=== PATIENT | male | born 1955 | race Hispanic/Latino ===

== ENCOUNTER 2024-09-21 10:04 | Emergency (ER) | payer MEDICARE ==
[2024-09-21] VITALS (7 sets, daily range): BP systolic 123–147; BP diastolic 79–89
[~2024-09-21] VITALS: Ht 167.6 cm; Wt 73.0 kg
[2024-09-21] MEDS ORDERED: DEXAMETHASONE SOD. PHOSPHATE 10 MG/ML VIAL IV ONE (11:35)
[2024-09-21] MEDS ORDERED: KETOROLAC TROMETHAMINE 30 MG/ML SDV IV ONE (11:35)
[2024-09-21 12:11] LABS: BASO% 0.9 % (0-3); EOS% 4.9 % (0-8); HEMATOCRIT 40.9 % (39.0-50.0); HEMOGLOBIN 13.9 g/dl (14.0-18.0); IMMATURE GRANULOCYTES 0.1 % (0.0-5.0); LYMPH% 33.4 % (15-41); MEAN CELL VOLUME 96.5 fL CALC (80.0-100.0); MEAN CORPUSCULAR HGB 32.8 pG CALC (26.0-32.0); MONO% 8.9 % (2-13); NEUT# 3.47 thou/uL (1.82-7.42); NEUT% 51.8 % (42-76); RED BLOOD COUNT 4.24 mill/uL (4.70-6.10); RED CELL DISTRI WIDTH 13.2 % (11.5-15.5)
[2024-09-21 12:26] LABS: ALBUMIN 4.5 g/dL (3.2-5.0); BILIRUBIN, TOTAL 0.9 mg/dL (0.2-1.3); CREATININE 1.2 mg/dL (0.7-1.3); POTASSIUM 4.4 mmol/l (3.5-5.1); TOTAL PROTEIN 7.2 g/dL (6.3-8.2)
[2024-09-21] MEDS ORDERED: NAPROXEN500 MG PO (12:58)
[2024-09-21] MEDS ORDERED: PREDNISONE50 MG PO (12:58)
== END 2024-09-21 13:10 | disposition home or self-care (01) ==
LOC: ED 10:04
PROVIDERS: Family Medicine
DX: M25.512 Pain in left shoulder (principal); M25.511 Pain in right shoulder; M25.542 Pain in joints of left hand; M25.541 Pain in joints of right hand; M25.552 Pain in left hip; M25.551 Pain in right hip; M25.562 Pain in left knee; M25.561 Pain in right knee

== ENCOUNTER 2024-10-15 16:13 | Emergency (ER) | payer MEDICARE ==
[~2024-10-15] VITALS: Ht 167.6 cm; Wt 77.0 kg
[~2024-10-15 16:13] MED LIST: NAPROXEN500 MG PO; PREDNISONE50 MG PO
[2024-10-15] MEDS ORDERED: SODIUM CHLORIDE 0.9% 1,000 ML IV ONE (17:15)
[2024-10-15] MEDS ORDERED: Levofloxacin 500 mg Premix 100 ML IV ONE (17:20)
[2024-10-15 17:32] VITALS: BP 143/79
[2024-10-15 17:40] LABS: URINE BILIRUBIN - DIPSTICK Negative (NEGATIVE); URINE BLOOD DIPSTICK Trace-intact (NEGATIVE); URINE COLOR Yellow; URINE GLUCOSE - DIPSTICK Negative (NEGATIVE); URINE KETONE Negative (NEGATIVE); URINE LEUK ESTERASE Small (NEGATIVE); URINE NITRITE - DIPSTICK Negative (Negative); URINE PH 7.5 (4.5-8.0); URINE PROTEIN - DIPSTICK 30 mg/dL (NEG-TRACE); URINE UROBILINOGEN - DIPSTICK 0.2 E.U./dL (0.2)
[2024-10-15 17:41] LABS: BASO% 0.3 % (0-3); EOS% 1.8 % (0-8); HEMATOCRIT 41.7 % (39.0-50.0); HEMOGLOBIN 13.1 g/dl (14.0-18.0); IMMATURE GRANULOCYTES 0.1 % (0.0-5.0); MEAN CORPUSCULAR HGB CONC 31.4 g/dL CAL (32.0-36.0); MONO% 4.8 % (2-13); NEUT# 8.77 thou/uL (1.82-7.42); RED BLOOD COUNT 4.09 mill/uL (4.70-6.10); RED CELL DISTRI WIDTH 13.1 % (11.5-15.5)
[2024-10-15 17:45] VITALS: BP 135/77
[2024-10-15 17:46] LABS: URINE BACTERIA FEW hpf; URINE RBC 0-2 RBC/hpf (0-5); URINE WBC 50-100 WBC/hpf (0-5)
[2024-10-15] MEDS ORDERED: LEVOFLOXACIN500MG PO (17:52)
[2024-10-15] MEDS ORDERED: BACTRIM DS1 TAB PO (17:52)
[2024-10-15] MEDS ORDERED: PHENAZOPYRIDIN100 M1 PO (17:52)
[2024-10-15 18:28] LABS: ALBUMIN 3.7 g/dL (3.2-5.0); BILIRUBIN, TOTAL 0.6 mg/dL (0.2-1.3); CREATININE 1.2 mg/dL (0.7-1.3); POTASSIUM 4.3 mmol/l (3.5-5.1); TOTAL PROTEIN 6.1 g/dL (6.3-8.2)
[2024-10-15 18:43] VITALS: BP 128/71
[2024-10-15 18:45] VITALS: BP 122/65
[2024-10-16] MEDS ORDERED: TAMSULOSIN0.4 MG PO (07:16)
== END 2024-10-15 18:48 | disposition home or self-care (01) ==
LOC: ED 16:13
PROVIDERS: Nurse Practitioner Family
DX: N39.0 Urinary tract infection, site not specified (principal); D64.9 Anemia, unspecified
CPT/HCPCS: J1956

== ENCOUNTER 2024-10-16 03:23 | Inpatient (IN) | payer MEDICARE ==
[2024-10-16] VITALS (18 sets, daily range): BP systolic 86–154; BP diastolic 47–88
[~2024-10-16] VITALS: Ht 167.6 cm; Wt 76.0 kg
[~2024-10-16 03:23] MED LIST changes: +BACTRIM DS1 TAB PO; +LEVOFLOXACIN500MG PO; +PHENAZOPYRIDIN100 M1 PO
[2024-10-16] MEDS ORDERED: CEFEPIME HYDROCHLORIDE 2 GM in SODIUM CHLORIDE 0.9% 100 ML IV STA (03:38)
[2024-10-16] MEDS ORDERED: VANCOMYCIN HCL 1 GM in SODIUM CHLORIDE 0.9% 250 ML IV STA (03:38)
[2024-10-16] MEDS ORDERED: SODIUM CHLORIDE 0.9% 1,000 ML BAG IV ONE (03:40)
[2024-10-16] MEDS ORDERED: KETOROLAC TROMETHAMINE 30 MG/ML SDV IV ONE (03:45)
[2024-10-16] MEDS ORDERED: ONDANSETRON HCl 4 MG/2 ML SDV IV ONE (03:45)
[2024-10-16 04:14] LABS: BASO% 0.4 % (0-3); EOS% 1.1 % (0-8); HEMOGLOBIN 13.1 g/dl (14.0-18.0); IMMATURE GRANULOCYTES 0.1 % (0.0-5.0); LYMPH% 20.9 % (15-41); MEAN CELL VOLUME 98.3 fL CALC (80.0-100.0); MEAN CORPUSCULAR HGB 32.2 pG CALC (26.0-32.0); MEAN CORPUSCULAR HGB CONC 32.8 g/dL CAL (32.0-36.0); MONO% 1.2 % (2-13); NEUT# 7.12 thou/uL (1.82-7.42); NEUT% 76.3 % (42-76); RED BLOOD COUNT 4.07 mill/uL (4.70-6.10)
[2024-10-16 04:21] LABS: ALBUMIN 3.9 g/dL (3.2-5.0); CREATININE 1.4 mg/dL (0.7-1.3); POTASSIUM 4.3 mmol/l (3.5-5.1); TOTAL PROTEIN 6.5 g/dL (6.3-8.2)
[2024-10-16 04:26] LABS: BILIRUBIN, TOTAL 1.1 mg/dL (0.2-1.3)
[2024-10-16] MEDS ORDERED: SODIUM CHLORIDE 0.9% 1,000 ML IV ONE ×2 (04:35)
[2024-10-16] MEDS ORDERED: SODIUM CHLORIDE 0.9% 1,000 ML IV PRN (05:15)
[2024-10-16] MEDS ORDERED: MAGNESIUM HYDROXIDE 30 ML UDC PO PRN (05:15)
[2024-10-16] MEDS ORDERED: ACETAMINOPHEN 325 MG/TAB PO PRN (05:15)
[2024-10-16] MEDS ORDERED: ONDANSETRON HCl 4 MG/2 ML SDV IV PRN (05:20)
[2024-10-16 06:31] LABS: URINE BILIRUBIN - DIPSTICK Negative (NEGATIVE); URINE BLOOD DIPSTICK Trace-intact (NEGATIVE); URINE GLUCOSE - DIPSTICK Negative (NEGATIVE); URINE KETONE Negative (NEGATIVE); URINE LEUK ESTERASE Negative (NEGATIVE); URINE NITRITE - DIPSTICK Negative (Negative); URINE PROTEIN - DIPSTICK 100 mg/dL (NEG-TRACE); URINE SPECIFIC GRAVITY 1.025; URINE UROBILINOGEN - DIPSTICK 0.2 E.U./dL (0.2)
[2024-10-16 06:34] LABS: URINE COLOR Yellow
[2024-10-16] MEDS ORDERED: TAMSULOSIN0.4 MG PO (07:16)
[2024-10-16] MEDS ORDERED: CEFEPIME HYDROCHLORIDE 2 GM in SODIUM CHLORIDE 0.9% 100 ML IV SCH (18:00)
[2024-10-16] MEDS ORDERED: TAMSULOSIN HCL 0.4 MG CAP PO SCH (21:00)
[2024-10-16] MEDS ORDERED: ENOXAPARIN SODIUM 40 MG/0.4 ML SYR SC SCH (21:00)
[2024-10-16] MEDS ORDERED: Zaleplon 5 MG/CAP PO PRN (21:10)
[2024-10-17] VITALS (8 sets, daily range): BP systolic 126–149; BP diastolic 73–85
[2024-10-17 05:05] LABS: HEMATOCRIT 37.6 % (39.0-50.0); HEMOGLOBIN 12.5 g/dl (14.0-18.0); MEAN CELL VOLUME 97.2 fL CALC (80.0-100.0); MEAN CORPUSCULAR HGB 32.3 pG CALC (26.0-32.0); MEAN CORPUSCULAR HGB CONC 33.2 g/dL CAL (32.0-36.0); RED BLOOD COUNT 3.87 mill/uL (4.70-6.10); RED CELL DISTRI WIDTH 13.2 % (11.5-15.5)
[2024-10-17 05:13] LABS: ALBUMIN 3.2 g/dL (3.2-5.0); BILIRUBIN, TOTAL 0.9 mg/dL (0.2-1.3); MAGNESIUM 1.7 mg/dL (1.6-2.3); POTASSIUM 3.7 mmol/l (3.5-5.1); TOTAL PROTEIN 5.5 g/dL (6.3-8.2)
[2024-10-17 05:18] LABS: CREATININE 1.2 mg/dL (0.7-1.3)
[2024-10-17] MEDS ORDERED: VANCOMYCIN HCL 125 MG/CAP PO SCH ×2 (08:30→18:00)
[2024-10-17] MEDS ORDERED: YEAST (S. BOULARDII)(S. CEREVI 250 MG CAP PO SCH (12:00)
[2024-10-17] MEDS ORDERED: CEFEPIME HYDROCHLORIDE 2 GM in SODIUM CHLORIDE 0.9% 100 ML IV SCH (18:00)
[2024-10-18 04:47] VITALS: BP 142/84
[2024-10-18 05:27] LABS: BASO% 0.3 % (0-3); EOS% 0.8 % (0-8); HEMATOCRIT 37.1 % (39.0-50.0); HEMOGLOBIN 12.5 g/dl (14.0-18.0); IMMATURE GRANULOCYTES 0.3 % (0.0-5.0); LYMPH% 16.4 % (15-41); MEAN CELL VOLUME 95.6 fL CALC (80.0-100.0); MEAN CORPUSCULAR HGB 32.2 pG CALC (26.0-32.0); MEAN CORPUSCULAR HGB CONC 33.7 g/dL CAL (32.0-36.0); MONO% 7.5 % (2-13); NEUT# 5.87 thou/uL (1.82-7.42); NEUT% 74.7 % (42-76); RED BLOOD COUNT 3.88 mill/uL (4.70-6.10); RED CELL DISTRI WIDTH 12.9 % (11.5-15.5)
[2024-10-18 05:56] LABS: ALBUMIN 3.1 g/dL (3.2-5.0); BILIRUBIN, TOTAL 0.6 mg/dL (0.2-1.3); CREATININE 1.1 mg/dL (0.7-1.3); MAGNESIUM 1.8 mg/dL (1.6-2.3); POTASSIUM 3.7 mmol/l (3.5-5.1); TOTAL PROTEIN 5.4 g/dL (6.3-8.2)
[2024-10-18 06:59] VITALS: BP 142/89
[2024-10-18 11:46] VITALS: BP 146/82
[2024-10-18 16:31] VITALS: BP 141/80
[2024-10-18 19:59] VITALS: BP 145/82
[2024-10-18] MEDS ORDERED: SIMETHICONE 20 MG/0.3 ML PO PRN (21:50)
[2024-10-18] MEDS ORDERED: HYDROcodone 5 MG/Acetaminophen 325 MG/COMBO PO PRN (21:55)
[2024-10-18] MEDS ORDERED: SIMETHICONE 20 MG/0.3 ML PO ONE (22:11)
[2024-10-19] VITALS (9 sets, daily range): BP systolic 129–152; BP diastolic 76–85
[2024-10-19 05:31] LABS: BASO% 0.3 % (0-3); EOS% 2.1 % (0-8); HEMATOCRIT 35.2 % (39.0-50.0); HEMOGLOBIN 12.1 g/dl (14.0-18.0); IMMATURE GRANULOCYTES 0.1 % (0.0-5.0); LYMPH% 17.2 % (15-41); MEAN CELL VOLUME 95.1 fL CALC (80.0-100.0); MEAN CORPUSCULAR HGB 32.7 pG CALC (26.0-32.0); MEAN CORPUSCULAR HGB CONC 34.4 g/dL CAL (32.0-36.0); MONO% 10.8 % (2-13); NEUT# 5.03 thou/uL (1.82-7.42); NEUT% 69.5 % (42-76); RED BLOOD COUNT 3.7 mill/uL (4.70-6.10)
[2024-10-19 05:44] LABS: ALBUMIN 2.9 g/dL (3.2-5.0); BILIRUBIN, TOTAL 0.5 mg/dL (0.2-1.3); MAGNESIUM 1.8 mg/dL (1.6-2.3); POTASSIUM 3.7 mmol/l (3.5-5.1); TOTAL PROTEIN 5.1 g/dL (6.3-8.2)
[2024-10-19] MEDS ORDERED: CEFEPIME HYDROCHLORIDE 2 GM in SODIUM CHLORIDE 0.9% 100 ML IV SCH (14:00)
[2024-10-20 03:55] VITALS: BP 143/88
[2024-10-20 05:17] LABS: BASO% 0.5 % (0-3); EOS% 3.5 % (0-8); HEMATOCRIT 33.2 % (39.0-50.0); HEMOGLOBIN 11.5 g/dl (14.0-18.0); IMMATURE GRANULOCYTES 0.8 % (0.0-5.0); LYMPH% 23.3 % (15-41); MEAN CELL VOLUME 93.8 fL CALC (80.0-100.0); MEAN CORPUSCULAR HGB 32.5 pG CALC (26.0-32.0); MEAN CORPUSCULAR HGB CONC 34.6 g/dL CAL (32.0-36.0); MONO% 12.1 % (2-13); NEUT# 3.91 thou/uL (1.82-7.42); NEUT% 59.8 % (42-76); RED BLOOD COUNT 3.54 mill/uL (4.70-6.10)
[2024-10-20 05:26] LABS: ALBUMIN 2.8 g/dL (3.2-5.0); BILIRUBIN, TOTAL 0.5 mg/dL (0.2-1.3); MAGNESIUM 1.9 mg/dL (1.6-2.3); POTASSIUM 3.6 mmol/l (3.5-5.1); TOTAL PROTEIN 5.2 g/dL (6.3-8.2)
[2024-10-20 07:37] VITALS: BP 131/74
[2024-10-20] MEDS ORDERED: (None)250 MG PO (09:48)
[2024-10-20] MEDS ORDERED: CIPROFLOXACN500 MG PO (09:48)
== END 2024-10-20 11:33 | disposition home or self-care (01) | DRG 872 ==
LOC: ED 03:23 → ED-I 05:00 → ED 05:17 → ED-I 05:18 → MS2 15:28
PROVIDERS: Family Medicine; Nurse Practitioner Family; ADMIT Internal Medicine; ATTEND Internal Medicine
DX: A41.59 Other Gram-negative sepsis (principal); A04.72 Enterocolitis due to Clostridium difficile, not specified as recurrent; N13.8 Other obstructive and reflux uropathy; N30.90 Cystitis, unspecified without hematuria; N40.1 Benign prostatic hyperplasia with lower urinary tract symptoms; M06.9 Rheumatoid arthritis, unspecified; Z87.440 Personal history of urinary (tract) infections; Z20.822 Contact with and (suspected) exposure to COVID-19
CPT/HCPCS: J0692; J1650; J2405; J3370